=== PATIENT | male | born 1940 | race Caucasian/White ===

== ENCOUNTER 2016-07-11 14:06 | Outpatient (RCR) | payer MEDICARE, OTHER | END 2016-07-29 09:26 | disposition home or self-care (01) | LOC: PT 14:06 | DX: M54.2 Cervicalgia (principal); G89.29 Other chronic pain ==

== ENCOUNTER 2016-10-11 20:57 | Emergency (ER) | payer MEDICARE, OTHER ==
[2016-10-11] MEDS ORDERED: FISH OIL1 IU PO (21:07)
[2016-10-11] MEDS ORDERED: MULTIVITAMIN1 SGL PO (21:07)
[2016-10-11] MEDS ORDERED: CRESTOR5 MG PO (21:07)
[2016-10-11 22:57] VITALS: BP 146/58
== END 2016-10-11 22:58 | disposition home or self-care (01) ==
LOC: ED 20:57
DX: R33.9 Retention of urine, unspecified (principal); N40.1 Benign prostatic hyperplasia with lower urinary tract symptoms
CPT/HCPCS: A4340; A4353

== ENCOUNTER 2018-06-18 08:30 | Outpatient (RCR) | payer MEDICARE, OTHER ==
[~2018-06-18 08:30] MED LIST: CRESTOR5 MG PO; FISH OIL1 IU PO; MULTIVITAMIN1 SGL PO
== END 2018-06-18 09:00 | disposition home or self-care (01) ==
LOC: PT 08:30
DX: M75.21 Bicipital tendinitis, right shoulder (principal); S86.112D Strain of other muscle(s) and tendon(s) of posterior muscle group at lower leg level, left leg, subsequent encounter
CPT/HCPCS: G8985-GP

== ENCOUNTER 2019-06-03 09:00 | Outpatient (RCR) | payer MEDICARE, OTHER | END 2019-06-03 09:30 | disposition still patient (30) | LOC: PT 09:00 | DX: S16.1XXA Strain of muscle, fascia and tendon at neck level, initial encounter (principal) ==

== ENCOUNTER → 2019-09-02 | Outpatient (CLI) | payer MEDICARE, OTHER | LOC: RAD 18:14 | DX: R05 Cough (principal); H53.9 Unspecified visual disturbance | CPT/HCPCS: A9585 ==

== ENCOUNTER → 2020-11-16 | Outpatient (CLI) | payer MEDICARE, OTHER | LOC: RAD 07:45 | DX: M79.89 Other specified soft tissue disorders (principal) ==

== ENCOUNTER 2021-06-20 08:52 | Outpatient (RCR) | payer MEDICARE, OTHER | END 2021-06-29 | LOC: PT 08:52 | DX: M54.9 Dorsalgia, unspecified (principal); M25.569 Pain in unspecified knee ==

== ENCOUNTER 2021-07-05 09:23 | Outpatient (RCR) | payer MEDICARE, OTHER | END 2021-07-30 | disposition home or self-care (01) | LOC: PT | DX: M54.9 Dorsalgia, unspecified (principal); M25.569 Pain in unspecified knee ==

== ENCOUNTER 2021-08-02 08:49 | Outpatient (RCR) | payer MEDICARE, OTHER | END 2021-08-27 | disposition still patient (30) | LOC: PT | DX: M25.511 Pain in right shoulder (principal) ==

== ENCOUNTER 2021-08-31 09:21 | Outpatient (RCR) | payer MEDICARE, OTHER | END 2021-08-31 17:00 | LOC: PT 09:21 | DX: M25.511 Pain in right shoulder (principal) ==

== ENCOUNTER → 2021-12-25 | Outpatient (CLI) | payer MEDICARE, OTHER | LOC: LAB 11:09 | DX: Z20.822 Contact with and (suspected) exposure to COVID-19 (principal) ==

== ENCOUNTER → 2022-02-20 | Outpatient (CLI) | payer MEDICARE, OTHER | LOC: LAB 09:29 | DX: U07.1 COVID-19 (principal) ==

== ENCOUNTER → 2022-02-20 | Outpatient (CLI) | payer MEDICARE, OTHER ==
[2022-02-20 11:09] LABS: ALBUMIN 4.2 g/dL (3.4-4.8)
[2022-02-20 11:10] LABS: POTASSIUM 4.2 mmol/L (3.5-5.1)
[2022-02-20 11:11] LABS: CALCIUM 9.4 mg/dL (8.3-10.5)
[2022-02-20 11:12] LABS: TOTAL PROTEIN 7.3 g/dL (6.2-8.1)
[2022-02-20 11:14] LABS: TOTAL BILIRUBIN 0.5 mg/dL (0.2-1.2)
== END ==
LOC: LAB 10:40
PROVIDERS: Nurse Practitioner
DX: Z20.822 Contact with and (suspected) exposure to COVID-19 (principal)

== ENCOUNTER 2023-08-26 07:52 | Outpatient (RCR) | payer MEDICARE, OTHER | END 2023-08-28 | disposition home or self-care (01) | LOC: PT | DX: M79.602 Pain in left arm (principal) ==

== ENCOUNTER 2023-10-07 08:00 | Outpatient (RCR) | payer MEDICARE, OTHER | END 2023-10-28 09:31 | LOC: PT 08:00 | DX: M79.602 Pain in left arm (principal) ==

== ENCOUNTER → 2024-04-30 | Outpatient (CLI) | payer MEDICARE, OTHER | LOC: RAD 09:09 | DX: M51.360 Other intervertebral disc degeneration, lumbar region with discogenic back pain only (principal); M51.34 Other intervertebral disc degeneration, thoracic region; M51.370 Other intervertebral disc degeneration, lumbosacral region with discogenic back pain only ==